=== PATIENT | female | born 1945 | race Caucasian/White ===

== ENCOUNTER 2023-07-12 17:30 | Emergency (ER) | payer MEDICARE, OTHER, SELFPAY ==
[2023-07-12 17:49] VITALS: BP 185/83; PULSE 75; RESP 18; TEMP 36.9; O2SAT 99; BMI 18.7
[2023-07-12 18:51] LABS: Appearance Urine Clear (Clear); Bilirubin Urine Negative (Negative); Blood Urine 1+ (Negative); Color Urine Yellow (Yellow); Glucose Urine Negative (Negative); Ketones Urine Negative (Negative); Leukocyte Esterase Urine Trace (Negative); Nitrite Urine Negative (Negative); Protein Urine Negative (Negative); Urobilinogen Urine 0.2 (0.2-1.0)
[2023-07-12 19:20] LABS: RBC Urine 0-2 (0-2); WBC Urine 0-2 (0-5)
[2023-07-12 20:58] VITALS: BP 175/96; PULSE 84; RESP 16; O2SAT 98
--- NOTE | 2023-07-12 21:32 | ED_ITS ---
HPI - Abdominal Pain General Time Seen by Provider: 21:47 Date Seen: 07/12/23 Chief Complaint: Abdominal Pain Stated Complaint: abdominal pain Time Seen by Provider: 07/12/23 21:31 Source: patient and RN notes reviewed Mode of arrival: ambulatory Limitations: no limitations History of Present Illness HPI narrative: Allen is a 78-year-old female that was referred earlier from urgent care today for possible need of a CT for abdominal pain. Due to the volume and acuity in the ED, patient did have wait before being seen. She is having diffuse lower abdominal pain. She has a history of longstanding constipation, states most of her life, but did have a bowel movement today. She had to give herself an enema over the weekend. Constipation has seemingly worsened a bit lately. She has had diminished appetite, really has not eaten anything today but cannot say she has had any nausea. No vomiting. She has underlying interstitial cystitis, cannot really tell she is having a change in urinary symptoms. She has had no fevers. She had a cystocele or prolapse repair done this past year. Believes she had colonoscopy about 3 years ago and told it was fine. 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 She has seen no blood in the stools. She certainly has not had diarrhea. MD elicited complaint: abdominal pain Pertinent past history: constipation Related Data Hx Last Menstrual Period: Postmenopausal Patient : No Home Medications Medication Instructions Recorded Confirmed polyethylene glycol 3350 17 4 g PO QDAY 07/12/23 07/12/23 gram/dose oral powder (Miralax) Allergies Allergy/AdvReac Type Severity Reaction Status Date / Time Sulfa (Sulfonamide Allergy Mild Hives Verified 07/12/23 17:53 Antibiotics) Review of Systems Status of ROS Reports: 6 or more systems reviewed and unremarkable except as noted in History and below Exam Const: Vital Signs, click to edit/add: Vital Signs - 24 hr 07/12/23 17:49 07/12/23 20:58 Temperature 98.4 F Pulse Rate [Pulse Oximeter] 75 84 Respiratory Rate 18 16 Blood Pressure [Ri ght Upper Arm] 185/83 H 175/96 H Pulse Oximetry 99 98 Oxygen Delivery Me thod Room Air Room Air Slender 78-year-old female seen ambulating into the ED of her own accord. She is seen in exam room to. She is alert, interactive, no apparent distress. Speech is normal, sclera clear, conjugate gaze. Equal pupils. Lungs are clear, good air entry, no wheezing or crackles. CV regular rate and rhythm, no murmur, normal S1 and S2. Abdomen is soft, not distended, bowel sounds sound normal, no rebound or guarding, no masses noted. Course Course ED Course: 78-year-old female with worsening abdominal pain with history of constipation, remote history of ulcerative proctitis. Discussed imaging options, we are going to proceed with CT of her abdomen pelvis with IV contrast. Will get a full complement of labs. At this time she is declining any pain management. We discussed if this is constipation, certainly would want to avoid narcotics as they can worsen this problem. She would typically take Advil at home, did offer her ibuprofen or even low-dose Toradol here, she declines at this point. Reevaluation(s) Time of Reevaluation #1: 00:13 Reevaluation #1: Have reviewed with patient her CT report and provided her a copy. She is centrally has constipation. She uses MiraLax daily, take senna, takes magnesium. She has not seen a GI specialist for years. Did review with her that she may want to consider this, there are other medicines out now that sometimes can be helpful. At this point, will discharge to home. Did discuss with her possibility of doing a clear out using a bottle of MiraLax as you would prior to colonoscopy. Vital Signs Vital signs: Initial Vital Signs Temperature 98.4 F 07/12/23 17:49 Temperature Source Temporal Artery Scan 07/12/23 17:49 Pulse Rate 75 07/12/23 17:49 Pulse Rhythm Regular 07/12/23 17:49 Respiratory Rate 18 07/12/23 17:49 Blood Pressure 185/83 H 07/12/23 17:49 Blood Pressure Mean 117 H 07/12/23 17:49 Blood Pressure Position Sitting 07/12/23 17:49 Pulse Oximetry 99 07/12/23 17:49 Oxygen Delivery Method Room Air 07/12/23 17:49 Vital Signs Temperature 98.4 F 07/12/23 17:49 Pulse Rate 75 07/12/23 17:49 Respiratory Rate 18 07/12/23 17:49 Blood Pressure 185/83 H 07/12/23 17:49 Pulse Oximetry 99 07/12/23 17:49 Oxygen Delivery Method Room Air 07/12/23 17:49 Temperature 98.4 F 07/12/23 17:49 Pulse Rate 84 07/12/23 20:58 Respiratory Rate 16 07/12/23 20:58 Blood Pressure 175/96 H 07/12/23 20:58 Pulse Oximetry 98 07/12/23 20:58 Oxygen Delivery Method Room Air 07/12/23 20:58 MDM - Abdominal Pain Lab Data Attestation: I reviewed the patient's lab results. Labs: Lab Results 07/12/23 07/12/23 07/12/23 Range/Units 18:24 21:55 22:00 WBC 9.64 (4.50-11.00) K/uL RBC 4.51 (4.00-5.20) m/uL Hgb 13.8 (12.0-16.0) gm/dL Hct 42.2 (33.0-51.0) % MCV 94 (80-100) fL MCH 31 (26-34) pg MCHC 33 (32-36) gm/dL RDW Coeff of Naomi 13.3 (11.5-15.5) % Plt Count 328 (140-440) K/uL Neut % (Auto) 71.4 (42.0-72.0) % Lymph % (Auto) 18.6 L (20-44) % [place] % (Auto) 8.4 (0.0-11.0) % Eos % (Auto) 0.9 (0.0-7.0) % Baso % (Auto) 0.3 (0.0-3.0) % Neut # (Auto) 6.88 (1.7-7.0) K/uL Lymph # (Auto) 1.80 (0.90-2.90) K/uL [place] # (Auto) 0.80 (0.00-0.90) K/UL Eos # (Auto) 0.09 (0.00-0.50) K/uL Baso # (Auto) 0.03 (0.00-0.30) K/uL Abs Immat Gran (auto) 0.04 (0.00-0.30) K/uL Imm/Tot Granulo (auto) 0.4 % Sodium 137 (135-149) mmol/L Potassium 3.7 (3.6-5.1) mmol/L Chloride 105 (96-114) mmol/L Carbon Dioxide 25 (20-32) mmol/L Anion Gap 7 (7-15) mEq/L BUN 21 (7-30) mg/dL Creatinine 0.7 (0.5-1.5) mg/dL Estimated Creat Clear 34.96 Estimated GFR 90 ml/min Glucose 100 (60-115) mg/dL Lactate 0.7 (0.5-1.9) mmol/L Calcium 9.6 (8.4-10.6) mg/dL Total Bilirubin 0.5 (0.1-1.5) mg/dL AST 33 (12-35) U/L ALT 26 (4-35) U/L Alkaline Phosphatase 84 (40-150) U/L C-Reactive Protein < 0.5 L (0.5-1.0) mg/dL Total Protein 7.8 (6.0-8.3) g/dL Albumin 4.4 (3.3-5.0) g/dL Lipase 222 (23-300) U/L Procalcitonin < 0.03 L (<0.50) ng/mL Urine Color Yellow (Yellow) Urine Appearance Clear (Clear) Urine pH 7.0 (5.0-8.5) Ur Specific [place] 1.010 (1.000-1.030) Urine Protein Negative (Negative) Urine Glucose (UA) Negative (Negative) Urine Ketones Negative (Negative) Urine Blood 1+ A (Negative) Urine Nitrite Negative (Negative) Urine Bilirubin Negative (Negative) Urine Urobilinogen 0.2 (0.2-1.0) Ur Leukocyte Esterase Trace A (Negative) Urine RBC 0-2 (0-2) Urine WBC 0-2 (0-5) Ur Squamous Epith Cells None (None-Few) Urine Bacteria None (None) POC Creatinine 0.8 (0.6-1.3) mg/dl 07/12/23 Range/Units 22:00 WBC (4.50-11.00) K/uL RBC (4.00-5.20) m/uL Hgb (12.0-16.0) gm/dL Hct (33.0-51.0) % MCV (80-100) fL MCH (26-34) pg MCHC (32-36) gm/dL RDW Coeff of Naomi (11.5-15.5) % Plt Count (140-440) K/uL Neut % (Auto) (42.0-72.0) % Lymph % (Auto) (20-44) % [place] % (Auto) (0.0-11.0) % Eos % (Auto) (0.0-7.0) % Baso % (Auto) (0.0-3.0) % Neut # (Auto) (1.7-7.0) K/uL Lymph # (Auto) (0.90-2.90) K/uL [place] # (Auto) (0.00-0.90) K/UL Eos # (Auto) (0.00-0.50) K/uL Baso # (Auto) (0.00-0.30) K/uL Abs Immat Gran (auto) (0.00-0.30) K/uL Imm/Tot Granulo (auto) % Sodium (135-149) mmol/L Potassium (3.6-5.1) mmol/L Chloride (96-114) mmol/L Carbon Dioxide (20-32) mmol/L Anion Gap (7-15) mEq/L BUN (7-30) mg/dL Creatinine (0.5-1.5) mg/dL Estimated Creat Clear Estimated GFR ml/min Glucose (60-115) mg/dL Lactate (0.5-1.9) mmol/L Calcium (8.4-10.6) mg/dL Total Bilirubin (0.1-1.5) mg/dL AST (12-35) U/L ALT (4-35) U/L Alkaline Phosphatase (40-150) U/L C-Reactive Protein (0.5-1.0) mg/dL Total Protein (6.0-8.3) g/dL Albumin (3.3-5.0) g/dL Lipase (23-300) U/L Procalcitonin Cancelled (<0.50) ng/mL Urine Color (Yellow) Urine Appearance (Clear) Urine pH (5.0-8.5) Ur Specific [place] (1.000-1.030) Urine Protein (Negative) Urine Glucose (UA) (Negative) Urine Ketones (Negative) Urine Blood (Negative) Urine Nitrite (Negative) Urine Bilirubin (Negative) Urine Urobilinogen (0.2-1.0) Ur Leukocyte Esterase (Negative) Urine RBC (0-2) Urine WBC (0-5) Ur Squamous Epith Cells (None-Few) Urine Bacteria (None) POC Creatinine (0.6-1.3) mg/dl Imaging Data CT scan - abdomen: Attestation: I have reviewed the pertinent imaging results. Radiologist's impression: Patient: ALLEN DRIVER Facility:?[facility] Patient ID:?[id number] Site Patient ID:?[id number]. Site :?[id number] Study:?CT Abdomen/Pelvis W/IV-07/12/2023 11:06:03 PM Ordering Physician:Lawanda Renteria Final Report: INDICATION: Lower abdominal pain. TECHNIQUE: CT abdomen and pelvis acquired with 58 cc Isovue 370 IV contrast. COMPARISON: None. FINDINGS: Lower chest: Scattered atelectasis. Tiny hiatal hernia. Liver: Unremarkable. Normal in size and attenuation. No suspicious masses. Gallbladder and bile ducts: Unremarkable. No stones or inflammation. No biliary dilatation. Pancreas: Unremarkable. No mass or inflammation. Spleen: Unremarkable. Normal in size. No masses. Adrenal glands: Unremarkable. No nodules. Kidneys: Unremarkable. No suspicious masses, stones, or hydronephrosis. GI tract: Moderate to severe colonic stool burden. Normal in caliber. No sign of mass or inflammation. Normal appendix. Vasculature: Moderate aorto iliac arterial calcification. Abdominal aorta is normal in caliber. Mesenteric arteries are patent. Lymph nodes: No lymphadenopathy. Peritoneum/Abdominal Wall: Unremarkable. No sign of mass or infiltration. No free air or significant free fluid. Pelvis: Unremarkable. Bones: Unremarkable for age. IMPRESSION: Moderate to severe colonic stool burden. Otherwise, no acute intra-abdominal/pelvic abnormality including appendicitis or diverticulitis. Please note that all CT scans at this facility use dose modulation, iterative reconstruction, and/or weight-based dosing when appropriate to reduce radiation dose to as low as reasonably achievable. Dictated by Piyush Garnica MD @ 07/12/2023 11:55:37 PM (Electronic Signature) Critical Care Time Critical Care Time Critical Care Time: No Discharge Plan Discharge Clinical Impression: Constipation Patient Disposition: Home, Self-Care Condition: Stable Instructions: Constipation (ED), High Fiber Diet (ED) Additional Instructions: Highly encourage you to see a GI specialist for further workup and potential management of your chronic constipation. In the meantime, can consider doing a bottle of MiraLax as they would for colonoscopy prep. Can also take magnesium citrate, this will also help. Can drink the whole bottle after you have done MiraLax. If you develop vomiting fever with severe abdominal pain, do need to be re-evaluated. Recommend clear liquid diet until your stool output has improved. Activity Level: Activity as Tolerated Prescriptions: No Action polyethylene glycol 3350 [Miralax] 17 gram/dose powder 4 g PO QDAY Follow Up/Referrals: Cassidy Kumar MD [Primary Care Provider] - Stand Alone Forms: Path.To Info Instructions
--- NOTE | 2023-07-12 21:54 | CRLHL7_ITS ---
For Patients: As a result of the Century Cures Act, medical imaging exams and procedure reports are released immediately into your electronic medical record. You may view this report before your referring provider. If you have questions, please contact your health care provider. INDICATION: Lower abdominal pain. TECHNIQUE: CT abdomen and pelvis acquired with 58 cc Isovue 370 IV contrast. COMPARISON: None. FINDINGS: Lower chest: Scattered atelectasis. Tiny hiatal hernia. Liver: Unremarkable. Normal in size and attenuation. No suspicious masses. Gallbladder and bile ducts: Unremarkable. No stones or inflammation. No biliary dilatation. Pancreas: Unremarkable. No mass or inflammation. Spleen: Unremarkable. Normal in size. No masses. Adrenal glands: Unremarkable. No nodules. Kidneys: Unremarkable. No suspicious masses, stones, or hydronephrosis. GI tract: Moderate to severe colonic stool burden. Normal in caliber. No sign of mass or inflammation. Normal appendix. Vasculature: Moderate aorto iliac arterial calcification. Abdominal aorta is normal in caliber. Mesenteric arteries are patent. Lymph nodes: No lymphadenopathy. Peritoneum/Abdominal Wall: Unremarkable. No sign of mass or infiltration. No free air or significant free fluid. Pelvis: Unremarkable. Bones: Unremarkable for age. IMPRESSION: Moderate to severe colonic stool burden. Otherwise, no acute intra-abdominal/pelvic abnormality including appendicitis or diverticulitis. Please note that all CT scans at this facility use dose modulation, iterative reconstruction, and/or weight-based dosing when appropriate to reduce radiation dose to as low as reasonably achievable. Dictated by Piyush Garnica MD @ 07/12/2023 11:55:37 PM (Electronically Signed)
[2023-07-12 22:15] LABS: Lactate* 0.7 mmol/L (0.5-1.9)
[2023-07-12 22:22] LABS: Creatinine, Point-of-Care* 0.8 mg/dl (0.6-1.3)
[2023-07-12 22:37] LABS: Chloride* 105 mmol/L (96-114)
[2023-07-12 22:38] LABS: Albumin* 4.4 g/dL (3.3-5.0); Sodium* 137 mmol/L (135-149)
[2023-07-12 22:39] LABS: Potassium* 3.7 mmol/L (3.6-5.1)
[2023-07-12 22:41] LABS: Alkaline Phosphatase* 84 U/L (40-150); Anion Gap 7 mEq/L (7-15); Aspartate Amino Transferase* 33 U/L (12-35); Bilirubin Total* 0.5 mg/dL (0.1-1.5); Carbon Dioxide* 25 mmol/L (20-32); Creatinine* 0.7 mg/dL (0.5-1.5); Est. Creatinine Clearance* 34.96; Estimated Glomerular Filt Rate 90 ml/min; Lipase* 222 U/L (23-300); Total Protein* 7.8 g/dL (6.0-8.3)
[2023-07-12 22:42] LABS: Alanine Aminotransferase* 26 U/L (4-35); Basophils Absolute Auto 0.03 K/uL (0.00-0.30); Basophils Percent Auto 0.3 % (0.0-3.0); Blood Urea Nitrogen* 21 mg/dL (7-30); Calcium* 9.6 mg/dL (8.4-10.6); Eosinophils Absolute Auto 0.09 K/uL (0.00-0.50); Eosinophils Percent Auto 0.9 % (0.0-7.0); Glucose* 100 mg/dL (60-115); Hematocrit 42.2 % (33.0-51.0); Hemoglobin* 13.8 gm/dL (12.0-16.0); Immature Granulocytes Abs Auto 0.04 K/uL (0.00-0.30); Immature Granulocytes Pct Auto 0.4 %; Lymphocytes Percent Auto 18.6 % (20-44); Mean Corpuscular HGB Conc 33 gm/dL (32-36); Mean Corpuscular Hemoglobin 31 pg (26-34); Mean Corpuscular Volume 94 fL (80-100); Monocytes Percent Auto 8.4 % (0.0-11.0); Neutrophils Absolute Auto 6.88 K/uL (1.7-7.0); Neutrophils Percent Auto 71.4 % (42.0-72.0); Platelet Count* 328 K/uL (140-440); RDW Coefficient of Variation % 13.3 % (11.5-15.5); Red Blood Count 4.51 m/uL (4.00-5.20); White Blood Count* 9.64 K/uL (4.50-11.00)
[2023-07-12 22:47] LABS: C Reactive Protein* < 0.5 mg/dL (0.5-1.0)
[2023-07-12 22:48] LABS: Slide Review Reflex No
[2023-07-12 23:09] LABS: Procalcitonin* < 0.03 ng/mL (<0.50)
== END 2023-07-13 00:22 | disposition home or self-care (01) ==
PROVIDERS: Emergency Provider Family Medicine; PCP Family Medicine
DX: K59.00 Constipation, unspecified (principal)
CPT/HCPCS: 36415; 74177; 80053; 81001; 82565; 83605; 83690; 84145; 85025; 86140; 99284; 99285; Q9967